=== PATIENT | female | born 1995 | race Caucasian/White ===

== ENCOUNTER 2016-11-25 21:54 | Emergency (ER) | payer MEDICAID, OTHER ==
--- NOTE | 2016-11-25 22:31 | PD ---
HPI Chief Complaint RLQ pain Date Seen: Nov 25, 2016 Travel History International Travel<30 Days: No Contact w/Intl Traveler<30Days: No History of Present Illness HPI Ms. Sow is a 21 yo at an estimated 17 weeks GA (KATIA 05/05/2017) who presents with report of right lower quadrant abdominal pain. Patient states that pain started 3 hours ago, is not sharp or dull, is constant in nature, in 6 /10 in severity. Patient denies any trauma preceding onset of pain. Patient reports history of frequent vomiting during and that she is still nauseous, but that nausea is chronic rather than associated with onset of pain. Patient reports history of 3 pound weight loss during ; she eats only once a day. Patient states that she only urinates twice a day, and that this is usual for her and also occurred prior to . Patient states that she drinks fluids very infrequently. Patient does not report fever/chills, abnormal bowel movements, vaginal bleeding, vaginal discharge, fever/chills, history of infections, or new sexual partners. No dysuria or hematuria reported. Patient does not report chest pain, shortness of breath, leg swelling. Patient denies past medical history or any problems with this other than nausea/vomiting. Patient reports that she recently moved to [facility] from [place], and that she does not have OB care in [facility]. Para: 2 : 3 History Past Medical History Medical History: Denies Significant Hx Obstetric History Obstetric History 002 Two prior full-term vaginal deliveries without complications Past Surgical History Surgical History: No Previous Surgery Family History Family History: Negative Social History Narrative Social History Recently moved to [facility]. Patient denies any history of abuse and reports stability at home Alcohol Use: No Tobacco Use: No Substance Abuse: No Allergies-Medications (Allergen,Severity, Reaction): Coded Allergies: No Known Allergies (Unverified , 11/25/16) Home Meds Active Scripts Ondansetron Odt 4 Mg Tab4 Mg SL DIRECTED PRN (Nausea/Vomiting) #3 TAB Ref 0 Prov:Leonardo Salgado MD R2 11/25/16 Review of Systems General / Constitutional: No: Fever, Chills Cardiovascular: No: Chest Pain or Discomfort Respiratory: No: Short of Breath Gastrointestinal: Nausea, Abdominal Pain (RLQ), No: Vomiting, Diarrhea Genitourinary: No: Urgency, Dysuria Skin: No Rash Physical Exam HR 75 BP 102/58 T 98.2 RR 18 Narrative GENERAL: Well-nourished, well-developed patient. SKIN: Warm and dry. HEAD: Normocephalic and atraumatic. EYES: No scleral icterus. No injection or drainage. ENT: No nasal drainage noted. Mucous membranes pink. Airway patent. NECK: Supple, trachea midline. CARDIOVASCULAR: Regular rate and rhythm without murmurs RESPIRATORY: CTAB, normal rate EXTREMITIES: No cyanosis or edema. NEUROLOGICAL: Awake and alert. Motor and sensory function grossly normal. PSYCH: flat affect ABDOMEN/GI: Abdomen soft, bowel sounds present, no rebound, no guarding. No pain in RLQ elicited Gravid FHT's: Category: 1 Baseline: 120s Vaginal: (Performed by nursing staff) Cervix: Long, thick, posterior Data Data Vital Signs Reviewed: Yes MDM Medical Record Reviewed: Yes Interpretation(s) Bedside US performed by Dr. Grove: Vertex presentation BPD 4.16- 18 wks 4 days Largest Pocket= 2.58 x 5.17 Placenta posterior, grade 1 No placental abruption No placental previa Narrative Course / MDM 21 yo at an estimated 17 weeks GA (KATIA 05/05/2017) Assessment: RLQ abdominal pain with benign exam Nausea/vomiting of US- Normal placental lie, GA relatively consistent w. dates (18wks 4days) Normal FHR Plan: -Will check UA to monitor hydration status - Zofran 4mg for nausea -encouraged abundant oral fluids Plan Interval History: On attempt to obtain UA, patient reported that she was unable to urinate. Straight cath attempted but minimal urine expressed -Will provide IV LR 1000ml to increase urine output -Will check CBC, CMP, TSH -UA obtained after LR CBC- Hgb 10.4 CMP- K 3.3, Cr 0.59, LFT's wnl TSH- wnl UA- pending Final Impression: Suspect the patient's right lower quadrant pain is likely secondary to round ligament pain -We'll plan to discharge patient home with follow-up with [facility] depending on her insurance coverage -Will notify patient of UA results once obtained from lab -Will provide patient with Zofran 4mg x3 tablets to use if nausea/vomiting recur -Patient counselled to increase oral potassium (eats 1 banana a day; counselled to eat 2 a day) and notify new OB physician -Patient counselled to drink much more liquids daily to improve hydration status at home Diagnosis Diagnosis: Primary Impression: Round ligament pain Disposition: 01 DISCHARGE HOME Condition: Stable Scripts Ondansetron Odt 4 Mg Tab4 Mg SL DIRECTED PRN (Nausea/Vomiting) #3 TAB Ref 0 Prov:Leonardo Salgado MD R2 11/25/16 Patient Instructions: Abdominal Pain in (ED), Movement (ED) Departure Forms: Work Release Enter return to work date: Nov 26, 2016 Remarks Patient contacted regarding negative urinalysis. She agrees to establishing with [facility] and following up in the near future. Leonardo Salgado MD R2 Nov 25, 2016 22:30
[2016-11-25] MEDS ORDERED: ONDA4TAB7 SL (23:37)
[2016-11-25] MEDS ORDERED: ONDANSETRON ODT 4 MG TAB PO ONE (23:45)
[2016-11-25] MEDS ORDERED: LACTATED RINGER'S 1000 ML INJ 1,000 ML IV SCH (23:51)
[2016-11-26] VITALS: RESP 18
[2016-11-26 00:30] VITALS: RESP 18
[2016-11-26 00:39] LABS: AUTOMATED NEUTROPHIL # 4.2 TH/MM3 (1.8-7.7); BASOPHIL % 0.4 % (0.0-2.0); EOSINOPHIL # 0.1 TH/MM3 (0-0.4); EOSINOPHIL % 1.5 % (0.0-4.0); HEMATOCRIT 29.3 % (35.0-46.0); HEMO FLAGS DIFF FINAL; LYMPH % 42.8 % (9.0-44.0); LYMPHOCYTE # 3.7 TH/MM3 (1.0-4.8); MEAN CELL VOLUME 81.6 FL (80.0-100.0); MEAN CORPUSCULAR HEMOGLOBIN 28.9 PG (27.0-34.0); MEAN CORPUSCULAR HGB CONC 35.4 % (32.0-36.0); MONO % 7.6 % (0.0-8.0); NEUT % 47.7 % (16.0-70.0); PLATELET COUNT 262 TH/MM3 (150-450); RED BLOOD COUNT 3.59 MIL/MM3 (4.00-5.30); RED CELL DISTRIBUTION WIDTH 15.3 % (11.6-17.2); WHITE BLOOD COUNT 8.7 TH/MM3 (4.0-11.0)
[2016-11-26 01:03] LABS: ANION GAP 9 MEQ/L (5-15); AST (GOT) 8 U/L (15-37); BICARBONATE 24.6 MEQ/L (21.0-32.0); BLOOD UREA NITROGEN 6 MG/DL (7-18); CHLORIDE 102 MEQ/L (98-107); GLOMERULAR FILTRATION RATE 126 ML/MIN (>89); POTASSIUM 3.3 MEQ/L (3.5-5.1); SODIUM (NA) 136 MEQ/L (136-145)
[2016-11-26 01:14] LABS: ALKALINE PHOSPHATASE 90 U/L (45-117); ALT (GPT) 11 U/L (10-53); TOTAL BILIRUBIN ADULT 0.2 MG/DL (0.2-1.0)
[2016-11-26 02:53] LABS: BLOOD, URINE NEG (NEG); COMMENT (UR) CATH-CULT NOT IND; CULTURE IF INDICATED CATH CULTURE NOT IND; GLUCOSE,URINE NEG (NEG); KETONE, URINE NEG (NEG); MUCUS URINE FEW /lpf (OCC); NITRITE,URINE NEG (NEG); PH, URINE 5.5 (5.0-8.5); SQUAMOUS EPITHELIAL CELL URINE <1 /hpf (0-5); URINE COLOR LIGHT-YELLOW (YELLW/STRAW)
[2017-02-08] MEDS ORDERED: PREN1CHW7 PO (11:31)
[2017-02-08] MEDS ORDERED: FERRTAB2 PO (11:32)
[2017-03-22] MEDS ORDERED: FERRTAB2 PO (15:04)
[2017-03-22] MEDS ORDERED: NITR1CAP36 PO (15:05)
== END 2016-11-26 04:06 | disposition home or self-care (01) ==
LOC: HOBED 21:54
DX: O26.892 Other specified pregnancy related conditions, second trimester (principal); R10.2 Pelvic and perineal pain; Z3A.17 17 weeks gestation of pregnancy
CPT/HCPCS: 76815; 80053; 81001; 84443; 85025; 96360

== ENCOUNTER 2017-01-13 20:15 | Emergency (ER) | payer MEDICAID ==
[~2017-01-13 20:15] MED LIST: ONDA4TAB7 SL
--- NOTE | 2017-01-13 20:58 | PD ---
HPI Chief Complaint Left lower quadrant pain Travel History International Travel<30 Days: No Contact w/Intl Traveler<30Days: No Known Affected Area: No History of Present Illness HPI 21-year-old at 22 weeks and 2 days comes in today complaining of left lower quadrant pain for approximately an hour and some lightheadedness. She states that she does not feel faint. She has had blood work done at her OB clinic and alternatives which was normal, and has not experienced any complications. lower quadrant pain has improved and denies contractions, denies vaginal bleeding, and is experiencing normal movement. She is trying to find a physician whom she can transfer her care to she is moved from [place]. Para: 2 : 3 History Past Medical History Narrative Medical Kidney stones in her first Obstetric History Obstetric History Spontaneous vaginal delivery 2 Past Surgical History Surgical History: No Previous Surgery Family History Family History: Negative Social History Alcohol Use: No Tobacco Use: No Substance Abuse: No Allergies-Medications (Allergen,Severity, Reaction): Coded Allergies: No Known Allergies (Unverified , 11/25/16) Home Meds Active Scripts Ondansetron Odt 4 Mg Tab4 Mg SL DIRECTED PRN (Nausea/Vomiting) #3 TAB Ref 0 Prov:Leonardo Salgado MD R2 11/25/16 Review of Systems Except as stated in HPI: all other systems reviewed are Neg Physical Exam Narrative GENERAL: Well-nourished, well-developed patient. SKIN: Warm and dry. HEAD: Normocephalic and atraumatic. EYES: No scleral icterus. No injection or drainage. CARDIOVASCULAR: Regular rate and rhythm without murmurs, gallops, or rubs. ABDOMEN/GI: Abdomen soft, non-tender, bowel sounds present, no rebound, no guarding Gravid to [-] weeks size Fundal Height: [22-] GENITOURINARY: Deferred FHT's: Category: [-] Baseline: [-140] Reactive: [Moderate-] Variability: [-] Decels: [-Absent] EXTREMITIES: No cyanosis or edema. BACK: Nontender without obvious deformity. No CVA tenderness. NEUROLOGICAL: Awake and alert. Motor and sensory grossly within normal limits. Five out of 5 muscle strength in all muscle groups. Normal speech. Data Data Orders Vital Signs (Adult) .ON ADMISSION (01/13/17 20:38) ^ Labor Status (01/13/17 20:38) Urinalysis - C+S If Indicated (01/13/17 20:38) Labs Laboratory Tests Test 01/13/17 20:35 Urine Color YELLOW Urine Turbidity CLOUDY Urine pH 8.0 Urine Specific [place] 1.020 Urine Protein TRACE mg/dL Urine Glucose (UA) NEG mg/dL Urine Ketones NEG mg/dL Urine Occult Blood NEG Urine Nitrite NEG Urine Bilirubin NEG Urine Urobilinogen LESS THAN 2.0 MG/DL Urine Leukocyte Esterase MOD Urine Squamous Epithelial 7 /hpf Cells Urine Amorphous Sediment MOD Urine Bacteria RARE /hpf Urine Mucus FEW /lpf Microscopic Urinalysis Comment CULT NOT INDICATED MDM Medical Record Reviewed: Yes Plan at 22 weeks gestation with LLQ pain, mild UA is benign Follow up with OB clinic, patient given information for [facility] if she is interested in transferring care Diagnosis Diagnosis: Primary Impression: with abdominal pain of left lower quadrant, antepartum Additional Impression: 22 weeks gestation of Disposition: DISCHARGE HOME Alethea Nash MD Jan 13, 2017 20:58
[2017-01-13 21:16] LABS: BACTERIA, URINE RARE /hpf; BLOOD, URINE NEG (NEG); GLUCOSE,URINE NEG (NEG); KETONE, URINE NEG (NEG); MUCUS URINE FEW /lpf (OCC); NITRITE,URINE NEG (NEG); SQUAMOUS EPITHELIAL CELL URINE 7 /hpf (0-5); URINE COLOR YELLOW (YELLW/STRAW)
[2017-01-13 21:18] LABS: COMMENT (UR) CULT NOT INDICATED; CULTURE IF INDICATED CULT NOT INDICATED
[2017-02-08] MEDS ORDERED: PREN1CHW7 PO (11:31)
[2017-02-08] MEDS ORDERED: FERRTAB2 PO (11:32)
[2017-03-22] MEDS ORDERED: FERRTAB2 PO (15:04)
[2017-03-22] MEDS ORDERED: NITR1CAP36 PO (15:05)
== END 2017-01-13 21:45 | disposition home or self-care (01) ==
LOC: HOBED 20:15
DX: R10.32 Left lower quadrant pain (principal); O26.892 Other specified pregnancy related conditions, second trimester; Z3A.22 22 weeks gestation of pregnancy; R42 Dizziness and giddiness
CPT/HCPCS: 81001; 99284

== ENCOUNTER 2017-03-17 15:51 | Emergency (ER) | payer MEDICAID ==
[~2017-03-17] VITALS: Ht 147.3 cm; Wt 65.0 kg
[~2017-03-17 15:51] MED LIST changes: +FERRTAB2 PO; -ONDA4TAB7 SL; +PREN1CHW7 PO
[2017-03-17 15:52] VITALS: BP 114/66; PULSE 106; RESP 20; TEMP 98.2; O2SAT 99
[2017-03-17 16:28] VITALS: BP 115/70; PULSE 108
[2017-03-17 16:30] VITALS: RESP 18; TEMP 97.5
--- NOTE | 2017-03-17 16:38 | PD ---
HPI Chief Complaint Bump on labia. Date Seen: Mar 17, 2017 Travel History International Travel<30 Days: No Contact w/Intl Traveler<30Days: No Known Affected Area: No History of Present Illness HPI Patient is a 21 year old at 32-5/7 weeks gestation who presents today for a bump on her labia. She noticed the bump today and describes it as painful. She denies any bleeding or drainage from the bump. She states that she recently shaved her genital region and typically gets ingrown hairs. She denies any vaginal bleeding or discharge. No gush or leaking of fluid. Positive movement. care with [facility]. History Past Medical History Medical History: Denies Significant Hx Obstetric History Obstetric History 2013- at 40 weeks gestation 2014- at 40 weeks gestation Past Surgical History Surgical History: No Previous Surgery Family History Family History: Negative Social History Alcohol Use: No Tobacco Use: No Substance Abuse: No Allergies-Medications (Allergen,Severity, Reaction): Coded Allergies: No Known Allergies (Unverified , 03/17/17) Home Meds Active Scripts Multi-Vit/Iron-Folic [id number] C (Ferralet)90-1-0.012-120 mg Tab1 Tab PO DAILY #30 BOTTLE Ref 11 Prov:Peggy Horton 02/08/17 Vit W/ Ferric Phospha (Vitafol Gummies 3.33-0.333-34.8 mg)1 Chw Chw3 Tab PO DAILY #90 BOTTLE Ref 11 Prov:Peggy Horton 02/08/17 Review of Systems Except as stated in HPI: all other systems reviewed are Neg General / Constitutional: No: Fever, Chills Eyes: No: Blurred Vision HENT: No: Headaches Cardiovascular: No: Chest Pain or Discomfort Respiratory: No: Short of Breath Gastrointestinal: No: Abdominal Pain Genitourinary: No: Pelvic Pain, Discharge, Vaginal Bleeding Musculoskeletal: No: Edema Neurologic: No: Headache Psychiatric: No: Substance Abuse Physical Exam Vital Signs Date Time Temp Pulse Resp B/P Pulse Ox O2 Delivery O2 Flow Rate FiO2 03/17/17 15:52 98.2 106 20 114/66 99 Room Air Narrative GENERAL: Well-nourished, well-developed patient. SKIN: Warm and dry. HEAD: Normocephalic and atraumatic. EYES: No scleral icterus. No injection or drainage. ENT: No nasal drainage noted. Mucous membranes pink. Airway patent. NECK: Supple, trachea midline. No JVD. CARDIOVASCULAR: Regular rate and rhythm without murmurs, gallops, or rubs. RESPIRATORY: Breath sounds equal bilaterally. No accessory muscle use. ABDOMEN/GI: Abdomen soft, non-tender, bowel sounds present, no rebound, no guarding Gravid to 32 weeks size GENITOURINARY: External Genitalia: intact and normal in appearance. 2mm papular, tender, erythematous lesion on distal mons pubis. Left inner thigh with molluscum contagiosum. BUS glands: normal Membranes: intact Uterine Contractions: none FHT's: Category: I Baseline: 150 Reactive: + Variability: moderate Decels: none EXTREMITIES: No cyanosis or edema. BACK: Nontender without obvious deformity. No CVA tenderness. NEUROLOGICAL: Awake and alert. Motor and sensory grossly within normal limits. Normal speech. Data Data Vital Signs Reviewed: Yes MDM Medical Record Reviewed: Yes Narrative Course / MDM 21 year old at 32-5/7 weeks gestation. 1. IUP- Category I tracing, reassuring. 2. Labial lesion- likely ingrown hair vs molluscum contagiosum. Encourage warm compresses. Discharge to home, follow-up with [facility] Dr. Nash and Dr. William Rick R1 Diagnosis Diagnosis: Primary Impression: Labial lesion Additional Impression: 32 weeks gestation of Disposition: DISCHARGE HOME Condition: Stable Anne Teague MD R2 Mar 17, 2017 16:38
[2017-03-17 17:15] VITALS: TEMP 98.4
[2017-03-22] MEDS ORDERED: FERRTAB2 PO (15:04)
[2017-03-22] MEDS ORDERED: NITR1CAP36 PO (15:05)
== END 2017-03-17 17:25 | disposition home or self-care (01) ==
LOC: HOBED 15:51
DX: O99.89 Other specified diseases and conditions complicating pregnancy, childbirth and the puerperium (principal); L98.9 Disorder of the skin and subcutaneous tissue, unspecified; Z3A.32 32 weeks gestation of pregnancy
CPT/HCPCS: 59025

== ENCOUNTER 2017-04-05 10:52 | Emergency (ER) | payer MEDICAID ==
[~2017-04-05 10:52] MED LIST changes: +NITR1CAP36 PO; +PROC2.5C RECTAL; +ZANT150T2 PO
--- NOTE | 2017-04-05 11:42 | PD ---
HPI Date Seen: Apr 05, 2017 Time Seen: 11:30 (Kartik Horowitz MD R1) Travel History International Travel<30 Days: No Contact w/Intl Traveler<30Days: No Known Affected Area: No (Kartik Horowitz MD R1) History of Present Illness HPI 21-year-old at 35/3 weeks gestation presenting for vaginal spotting. First noticed it this morning, had a little bit of spotting on a pad. Change the pad, then continued to have a little bit of spotting. Denies contractions, vaginal discharge, vaginal itching, abdominal pain, chest pain, shortness of breath, dysuria, urinary frequency. Denies fevers or chills. Endorses movement. (Kartik Horowitz MD R1) History Past Medical History Medical History: Denies Significant Hx (Kartik Horowitz MD R1) Obstetric History Obstetric History 2 prior vaginal deliveries, uncomplicated (Kartik Horowitz MD R1) Past Surgical History Surgical History: No Previous Surgery (Kartik Horowitz MD R1) Family History Family History: Negative (Kartik Horowitz MD R1) Social History Alcohol Use: No Tobacco Use: No Substance Abuse: No (Kartik Horowitz MD R1) Allergies-Medications (Allergen,Severity, Reaction): Coded Allergies: No Known Allergies (Unverified , 03/31/17) Home Meds Active Scripts Hydrocortisone Rectal 2.5% (Proctosol Hc 2.5%)2.5% Cream1 Applic RECTAL BID PRN (PAIN/INFLAMMATION) #1 TUBE Ref 2 Prov:Peggy Horton 03/31/17 Ranitidine (Zantac)150 Mg [id number] Mg PO BID #60 TAB Ref 6 Prov:Peggy Horton 03/31/17 Nitrofurantoin Macrocrystal 100 Mg [id number] Mg PO BID #10 CAP Ref 0 Prov:Jasen Ennis MD 03/22/17 Multi-Vit/Iron-Folic Tuqj-M10-[id number] C (Ferralet)90-1-0.012-120 mg Tab1 Tab PO DAILY #90 BOTTLE Ref 11 Prov:Jasen Ennis MD 03/22/17 Vit W/ Ferric Phospha (Vitafol Gummies 3.33-0.333-34.8 mg)1 Chw Chw3 Tab PO DAILY #90 BOTTLE Ref 11 Prov:GabelucyPeggy pemberton Nasir SHELBY 02/08/17 Review of Systems Except as stated in HPI: all other systems reviewed are Neg (Kartik Horowitz MD R1) Physical Exam Narrative GENERAL: Well-nourished, well-developed patient. SKIN: Warm and dry. HEAD: Normocephalic and atraumatic. EYES: No scleral icterus. No injection or drainage. ENT: No nasal drainage noted. Mucous membranes pink. Airway patent. CARDIOVASCULAR: Regular rate and rhythm without murmurs, gallops, or rubs. RESPIRATORY: Breath sounds equal bilaterally. No accessory muscle use. ABDOMEN/GI: Abdomen soft, non-tender, no rebound, no guarding GENITOURINARY: Speculum exam revealing closed cervix with trace amount of blood leaking from cervical os and mild amount of blood in vaginal vault. Mild lochia present, not foul-smelling. FHT's: Category: 1 Baseline: 130 Reactive: Y Variability: moderate Decels: N Contractions: Irregular EXTREMITIES: No cyanosis or edema. NEUROLOGICAL: Awake and alert. Motor and sensory grossly within normal limits. Normal speech. (Kartik Horowitz MD R1) Data Data Vital Signs Reviewed: Yes Orders Vital Signs (Adult) .ON ADMISSION (04/05/17 11:26) ^ Labor Status (04/05/17 11:26) ^ Non Stress Test (04/05/17 11:26) ^ Hydration (04/05/17 11:26) (Kartik Horowitz MD R1) MDM Medical Record Reviewed: Yes Narrative Course / MDM 21-year-old at 35/3 weeks gestation presenting with vaginal spotting #1 IUP Category 1 tracing, reassuring #2 vaginal spotting Denies recent sexual intercourse, speculum exam normal, no evidence of previa ultrasound done 03/02/17 - Discharge home, return to be ED if bleeding becomes significant or if additional symptoms develop dw Dr. Gramajo (Kartik Horowitz MD R1) Attending Attestation The exam, history, and the medical decision-making described in the above note were completed with the assistance of the resident provider. I reviewed and agree with the findings presented. I attest that I had a [id number] encounter with the patient on the same day, and personally performed and documented my assessment and findings in the medical record. (Yanna Gramajo MD) Diagnosis Diagnosis: Primary Impression: Vaginal spotting Disposition: 01 DISCHARGE HOME Condition: Good Patient Instructions: General Instructions, Movement (ED), Early Labor Signs (ED) Kartik Horowitz MD R1 Apr 05, 2017 11:42 Yanna Gramajo MD Apr 05, 2017 11:47
[2017-04-05 11:45] VITALS: PULSE 89
[2017-04-14] MEDS ORDERED: IBUP800T23 PO (12:06)
== END 2017-04-05 12:06 | disposition home or self-care (01) ==
LOC: HOBED 10:52
DX: O26.853 Spotting complicating pregnancy, third trimester (principal); Z3A.35 35 weeks gestation of pregnancy
CPT/HCPCS: 59025

== ENCOUNTER 2017-04-09 03:55 | Emergency (ER) | payer MEDICAID ==
--- NOTE | 2017-04-09 04:48 | PD ---
HPI Chief Complaint Contractions Date Seen: Apr 09, 2017 Travel History International Travel<30 Days: No Contact w/Intl Traveler<30Days: No Known Affected Area: No History of Present Illness HPI Patient is 21-year-old white female at 36 weeks who presents planning contractions. Denies bleeding or rupture the membranes. [facility] Para: 2 : 4 History Obstetric History Obstetric History 2 vaginal deliveries Social History Alcohol Use: No Tobacco Use: No Substance Abuse: No Allergies-Medications (Allergen,Severity, Reaction): Coded Allergies: No Known Allergies (Unverified , 03/31/17) Home Meds Active Scripts Hydrocortisone Rectal 2.5% (Proctosol Hc 2.5%)2.5% Cream1 Applic RECTAL BID PRN (PAIN/INFLAMMATION) #1 TUBE Ref 2 Prov:Peggy Horton 03/31/17 Ranitidine (Zantac)150 Mg [id number] Mg PO BID #60 TAB Ref 6 Prov:Peggy Horton 03/31/17 Nitrofurantoin Macrocrystal 100 Mg [id number] Mg PO BID #10 CAP Ref 0 Prov:Jasen Ennis MD 03/22/17 Multi-Vit/Iron-Folic Lxul-U97-[id number] C (Ferralet)90-1-0.012-120 mg Tab1 Tab PO DAILY #90 BOTTLE Ref 11 Prov:Jasen Ennis MD 03/22/17 Vit W/ Ferric Phospha (Vitafol Gummies 3.33-0.333-34.8 mg)1 Chw Chw3 Tab PO DAILY #90 BOTTLE Ref 11 Prov:Peggy Horton 02/08/17 Review of Systems General / Constitutional: No: Fever, Weight Gain, Chills, Other Eyes: No: Diploplia, Blurred Vision, Visual changes, Pain, Photophobia HENT: No: Headaches, Vertigo, Lightheadedness Cardiovascular: No: Irregular Rhythm, Chest Pain or Discomfort, Palpitations, Tachycardia, Syncope, Varicosities, Edema, Cyanosis Respiratory: No: Cough, Short of Breath, Other Gastrointestinal: No: Nausea, Vomiting, Diarrhea Genitourinary: No: Decreased Urinary Output, Oliguria Musculoskeletal: No: Limited ROM, Weakness, Cramping, Edema, Pain Skin: No Rash, No Itching, No Dryness, No Lumps, No Change in Pigmentation, No Change in Nails, No Alopecia, No Lesions Neurologic: No: Weakness, Dizziness, Syncope, Focal Abnormalities, Coordination Problem, Headache, Slurred Speech, Seizures Psychiatric: No: Depression, Suicidal Ideations, Homicidal Ideation Endocrine: No: Heat Intolerance, Cold Intolerance, Polydipsia, Polyuria, Other Physical Exam Narrative GENERAL: Well-nourished, well-developed patient. SKIN: Warm and dry. HEAD: Normocephalic and atraumatic. EYES: No scleral icterus. No injection or drainage. ENT: No nasal drainage noted. Mucous membranes pink. Airway patent. NECK: Supple, trachea midline. No JVD. CARDIOVASCULAR: Regular rate and rhythm without murmurs, gallops, or rubs. RESPIRATORY: Breath sounds equal bilaterally. No accessory muscle use. BREASTS: Bilateral exam showed no masses , no retractions, no nipple discharge. ABDOMEN/GI: Abdomen soft, non-tender, bowel sounds present, no rebound, no guarding Gravid to [-36] weeks size Fundal Height: [-36] GENITOURINARY: External Genitalia: intact and normal in appearance BUS glands: [-] Cervix: [-] Dilatation: [1-2-] Effacement: [-50] Station: [-3] Presentation: [vtx-] Membranes: [intact ] Uterine Contractions: [irreg-] FHT's: Category: [-1] Baseline: [133-] Reactive: [-yes] Variability: [-mod] Decels: [-0] EXTREMITIES: No cyanosis or edema. BACK: Nontender without obvious deformity. No CVA tenderness. NEUROLOGICAL: Awake and alert. Motor and sensory grossly within normal limits. Five out of 5 muscle strength in all muscle groups. Normal speech. MDM Interpretation(s) Patient is 21-year-old white female 36 weeks presents complaining contractions. She denies bleeding or ruptured membranes. heart rate tracing is reactive and she is yen irregularly. Cervix is 1-2/ 50 and - 3 very posterior. Patient not in active labor at this time. Appears to be resting comfortably on the stretcher. Plan Plan to discharge home to return for increased pain, bleeding or ruptured membranes Diagnosis Diagnosis: Primary Impression: False labor before 37 completed weeks of gestation Disposition: 01 DISCHARGE HOME Condition: Stable Patient Instructions: General Instructions, Early Labor Signs (ED), Having Your Baby: The Labor Process (GEN) Additional Instructions: RETURN FOR CONTRACTIONS, LOSS OF FLUID (WATER BREAKING), VAGINAL BLEEDING, OR DECREASED MOVEMENT DRINK 8-10 LARGE GLASSES OF WATER EVERY DAY KEEP SCHEDULED APPOINTMENT WITH YOUR PROVIDER Departure Forms: Tests/Procedures Zachary Rodriguez II, MD Apr 09, 2017 04:48
[2017-04-14] MEDS ORDERED: IBUP800T23 PO (12:06)
== END 2017-04-09 04:50 | disposition home or self-care (01) ==
LOC: HOBED 03:55
DX: O47.03 False labor before 37 completed weeks of gestation, third trimester (principal); Z3A.36 36 weeks gestation of pregnancy; Z79.899 Other long term (current) drug therapy
CPT/HCPCS: 59025